=== PATIENT | male | born 1980 | race Caucasian/White ===

== ENCOUNTER 2019-09-05 18:02 | Inpatient (IN) | payer MEDICARE, MEDICAID, SELFPAY ==
--- NOTE | ~2019-09-05 | CT_ITS ---
EXAMINATION: CT abdomen pelvis w con DATE: 09/05/2019 19:19 INDICATION: Elevated blood sugar, nausea and vomiting. TECHNIQUE: Computed tomography (CT) of the abdomen and pelvis was performed with 100 mL Omnipaque-350 intravenous contrast. Automated exposure control and iterative reconstruction technique were employe d. The dose-length product was 1737.16 mGy-cm. COMPARISON: 02/26/2017 FINDINGS: Lung bases are clear. Heart size is normal. No pericardial or pleural effusion. Diffuse hepatic steat osis with focal sparing along the gallbladder fossa. Gallbladder, pancreas and bilateral kidneys are normal. Splenomegaly measuring 18.3 cm in craniocaudal length. 1.4 cm macroscopic fat attenuation rig ht adrenal myelolipoma. 10 mm low-attenuation left adrenal adenoma. There are few scattered colonic d iverticula without adjacent inflammatory change to suggest diverticulitis. Small bowel and appendix a re normal. Moderate-sized fat-containing umbilical hernia measuring 8.2 x 8.3 x 6.1 cm extending to a n orifice measuring 3.6 x 3.5 cm. Bladder is normal. No free intraperitoneal gas or fluid. No patholo gically enlarged abdominal or pelvic lymphadenopathy. Minimal scattered degenerative skeletal changes . IMPRESSION: 1. No acute intra-abdominal/pelvic process. 2. Diffuse hepatic steatosis. 3. Moderate-sized fat-containing umbilical hernia. Reviewed, dictated and finalized at location A. GAGE PROFESSIONAL
--- NOTE | ~2019-09-05 | XR_ITS ---
EXAMINATION: XR chest 1V portable DATE: 09/05/2019 19:20 INDICATION: Cough and chest pain. Elevated blood sugar. TECHNIQUE: frontal view of the chest was obtained. COMPARISON: Chest radiograph dated 02/21/2019 FINDINGS: The lungs are now clear with no focal airspace opacities, pulmonary edema, pleural effusion or pneumo thorax. The cardiomediastinal silhouette is normal. Visualized bones and soft tissues are unremarkabl e. IMPRESSION: 1. Normal chest radiograph. Reviewed, dictated and finalized at location A. IVES TECHNICIAN IMPRESSION: 1. Normal chest radiograph.
[2019-09-05 18:11] VITALS: BP 129/77; PULSE 88; RESP 16; TEMP 36.3; O2SAT 96
[2019-09-05 18:20] LABS: Glucose Point of Care 499 (65-105)
--- NOTE | 2019-09-05 18:21 | ED.GENADULT ---
HPI - General Adult General Chief complaint: Unspecified Stated complaint: ELEVATED BLOOD SUGAR Time Seen by Provider: 09/05/19 18:08 Source: patient and RN notes reviewed Mode of arrival: ambulatory Limitations: no limitations History of Present Illness HPI narrative: A 39 y/o male presents to the ED d/t elevated BS for the past month. He states that his BS has been running between 400-600 for the past month. He reports some associated N/V and SOB. He notes that he has been taking his medication as prescribe, but that since his BS has not been improving he decided to come to the ED today. He denies any CP, diarrhea, fevers, chills, or confusion. MD complaint: Elevated BS Onset (ago): month(s) (1) Relieving factors: none Associated symptoms: nausea/vomiting and shortness of breath Related Data Allergies Allergy/AdvReac Type Severity Reaction Status Date / Time No Known Allergies Allergy Unknown Verified 09/05/19 18:36 Review of Systems Review of Systems: All systems reviewed & are unremarkable except as noted in HPI and below Constitutional: Constitutional: Denies chills and Denies fever(s) Cardiovascular: Cardiovascular: Denies chest pain Respiratory: Respiratory: Reports dyspnea Gastrointestinal: Gastrointestinal: Denies diarrhea, Reports nausea and Reports vomiting Neurologic: Denies confusion [facility] Past Medical History Medical History (Updated 09/05/19 @ 20:32 by Florentin Silva DO) Anxiety Cellulitis Depression DMII (diabetes mellitus, type 2) Eczema Fatty liver GERD (gastroesophageal reflux disease) H/O: HTN (hypertension) History of angina History of kidney stones Hx of gallstones Hx of gout Hypercholesteremia Lymphedema Sleep apnea Umbilical hernia Surgical History Surgical History (Updated 09/05/19 @ 18:26 by Eren Kraft) Surgical history unknown Social History Social History (Updated 09/05/19 @ 18:26 by Eren Kraft) Smoking status: Former smoker Second hand tobacco smoke exposure: Yes Gender identity (if verbalized by the patient): Male Comments PCP: Dr. Montaño. Exam Narrative: Exam Narrative: APPEARANCE: No acute distress, nontoxic, resting in bed EYES: EOMI HEENT: Normocephalic, atraumatic, oral mucosa dry, no erythema or exudate posterior pharynx RESPIRATORY: No respiratory distress Clear to auscultation bilaterally with no rhonchi wheezing or rales. CARDIOVASCULAR: Regular rate and rhythm without murmurs rubs or gallops. ABDOMINAL: Soft, nondistended, diffusely tender to palpation, no rebound or guarding, umbilical hernia that is easily reducible MUSCULOSKELETAl: Moves all extremities. No clubbing, cyanosis or edema. NEURO: Awake and alert. Following commands, speech normal, no focal deficits SKIN:: Warm, dry. No rashes lesions or abrasions PSYCHIATRIC: Normal affect/mood, Course Course Emergency Course: Discussed with patient and family results of workup and diagnosis. Discussed need for admission. Patient and family understand and agree to current treatment plan Consultations Consultation #1: Discussed case with Dr. Farah (Hospitalist). Accepts the pt. Date: 09/05/19 Time: 19:54 Vital Signs Vital signs: Vital Signs Temperature 97.3 F L 09/05/19 18:11 Pulse Rate 88 09/05/19 18:11 Respiratory Rate 16 09/05/19 18:11 Blood Pressure 129/77 09/05/19 18:11 Pulse Oximetry 96 09/05/19 18:11 Temperature 97.3 F L 09/05/19 18:11 Pulse Rate 88 09/05/19 19:00 Respiratory Rate 16 09/05/19 18:23 Blood Pressure 129/77 09/05/19 18:11 Pulse Oximetry 96 09/05/19 18:11 Medical Decision Making Vital Signs Vital Signs: Vital Signs Temperature 97.3 F L 09/05/19 18:11 Pulse Rate 88 09/05/19 18:11 Respiratory Rate 16 09/05/19 18:11 Blood Pressure 129/77 09/05/19 18:11 Pulse Oximetry 96 09/05/19 18:11 Temperature 97.3 F L 09/05/19 18:11 Pulse Rate 88 09/05/19 19:00 Respiratory Rate 16 09/05/19 18:23 Blood Pressure
[2019-09-05 18:23] VITALS: RESP 16
--- NOTE | 2019-09-05 18:23 | ECG_ITS ---
Measurements Intervals [place] Rate: 85 P: 49 MI: 183 QRS: 49 QRSD: 115 T: 5 QT: 393 QTc: 469 Interpretive Statements SINUS RHYTHM INTRAVENTRICULAR CONDUCTION DELAY CANNOT RULE OUT SEPTAL INFARCT, AGE INDETERMINATE BORDERLINE ST-T WAVE ABNORMALITY- INF/LAT LEADS BASELINE ARTIFACT- V1, V3-V6 ABNORMAL ECG Electronically Signed On 09-05-2019 18:55:38 [employer] by Javier Jiménez D.O.
[2019-09-05 18:42] LABS: Glucose Point of Care > 500 (65-105)
[2019-09-05 18:51] LABS: Basophils Absolute Auto 0.1 K/mm3 (0.0-0.1); Eosinophils Absolute Auto 0.3 K/mm3 (0-0.3); Eosinophils Percent Auto 2.3 % (0-4.4); Hematocrit 48.7 % (42.0-52.0); Hemoglobin 17.6 g/dL (14.0-18.0); Immature Granulocyte Absolute 0.09 K/mm3 (0.00-0.031); Immature Granulocyte Percent A 0.8 % (0-0.5); Lymphocytes Absolute Auto 2.56 K/mm3 (0.9-3.2); Lymphocytes Percent Auto 22.7 % (18.3-44.2); Mean Corpuscular HGB Conc 36.1 g/dl (32-36); Mean Corpuscular Hemoglobin 30.1 pg (26-34); Mean Corpuscular Volume 83.4 fl (80-100); Mean Platelet Volume 10.5 fl (7.4-10.4); Monocytes Percent Auto 9.2 % (2.6-8.5); Neutrophils Absolute Auto 7.2 K/mm3 (1.3-6.7); Platelet Count Result 243 k/mm3 (150-375); Red Blood Count 5.84 M/mm3 (4.6-6.20); Red Cell Distribution Width 12.3 % (11.5-14.5); White Blood Count 11.3 K/mm3 (4.5-10.0)
[2019-09-05] MEDS: SODIUM CHLORIDE 0.9% IV 1,000 ML 999 ML IV CONT ×2 (18:52→20:02)
[2019-09-05 18:54] LABS: Alveolar/Arterial O2 Gradient 43.1 mmHg; Base Excess ABG 6.3 mEq/l (+/-2.0); Fractional Inspired Oxygen 21 %; HCO3 ABG 30.8 mEq/l (22.0-26.0); Oxygen Content ABG 21.2 %vol (16.0-22.0); Oxygen Saturation ABG 90.2 % (95.0-100.0); Oxyhemoglobin 85.4 % THb (90.0-100.0); PCO2 ABG 43.3 mmHg (35.0-45.0); PO2 ABG 54.8 mmHg (80.0-100.0); PO2 FiO2 Ratio Arterial Blood 2.61 %; Total Hemoglobin 17.7 g/dL (12.0-18.0)
[2019-09-05 18:56] LABS: Device ROOM AIR; Modified Allen's Test Pass; Site Drawn LEFT RADIAL
[2019-09-05 19:00] VITALS: PULSE 88
[2019-09-05 19:06] LABS: Lactic Acid Reflex 1.7 mmol/L (0.7-2.1)
[2019-09-05 19:07] LABS: Partial Thromboplastin Time 24.6 SECONDS (22.3-36.8); Prothrombin Time 13.3 Seconds (11.1-14.7)
[2019-09-05 19:11] LABS: Add Urine Microscopic? YES; Appearance Urine Clear (Clear); Bilirubin Urine Negative (Negative); Blood Urine Negative (Negative); Color Urine Yellow (Yellow); Glucose Urine UA 3+ mg/dL (Negative); Ketones Urine Negative (Negative); Leukocyte Esterase Ur Negative LEU/UL (Negative); Nitrate Urine Negative (Negative); Protein Urine Negative (Negative); RBC Urine 0-2 /hpf (0-2); Specific Grav Ur 1.013 (1.001-1.035); Squamous Epithelial Cell Urine Rare /hpf (Few); Urobilinogen Urine Negative mg/dL (<2.0); WBC Urine 0-3 /hpf
[2019-09-05 19:11] LABS: Alanine Aminotransferase 71 U/L (4-50); Albumin Level 4.7 g/dL (3.5-5.1); Alkaline Phosphatase 78 U/L (38-126); Aspartate Amino Transferase 51 U/L (17-59); Bilirubin,Total 1.4 mg/dL (0.2-1.3); Blood Urea Nitrogen 27 mg/dL (9-20); Carbon Dioxide 36 mmol/L (22-30); Chloride 76 mmol/L (98-107); Estimated CRCL calculation 155 ml/min; Estimated Glomerular Filt Rate > 60; Glucose 452 mg/dL (75-110); Lipase 111 U/L (23-300); Potassium 2.5 mmol/L (3.4-5.0); Sodium 127 mmol/L (137-145)
[2019-09-05 19:15] LABS: Beta-Hydroxybutyrate/Acetoacetate 0.89 mmol/L (0.02-0.27)
[2019-09-05] MEDS: ONDANSETRON INJ 4 MG/2 ML VIAL IV PUSH (19:29)
[2019-09-05 20:16] LABS: Glucose Point of Care > 500 (65-105)
[2019-09-05] MEDS: INSULIN HUMAN REGULAR (*BKC) 100 UNITS/ML 8 UNITS IV PUSH (20:19)
[2019-09-05 20:31] VITALS: BP 121/70; PULSE 79; RESP 16; O2SAT 95
[2019-09-05] MEDS: POTASSIUM CHLORIDE 20 MEQ TABLET 40 MEQ PO (20:33)
[2019-09-05 21:19] VITALS: BP 119/66; PULSE 95; RESP 16; O2SAT 95
--- NOTE | 2019-09-05 21:25 | PM.IMHP ---
H&P: HPI History of Present Illness Chief complaint: hyperglycemia,hypokalemia,hyponatremia Narrative: This is a pleasant morbidly obese diabetic 39-year-old male who presented to the hospital [facility] with a complaint of ongoing nausea and vomiting which she has had for the past month as well as hyperglycemia. The patient mentions he has had elevated blood sugars of 400 - 600 mg/dl for the past month and has felt terrible. He does complain of upper respiratory symptoms over the past few weeks including cough, congestion, runny nose, sore throat. He denies any chest pain, fevers, chills, diarrhea the, rectal bleeding, dysuria, hematuria, or other symptoms. The patient has been taking his insulin as prescribed by his primary care doctor. Tonight in the emergency room the patient was evaluated and found to be dehydrated, hyperglycemic with a blood glucose of 500 mg/dL, and have a low potassium of 2.5. He does mention that he recently just started a new diuretic. He did complain of mild diffuse abd pain [facility] The patient has been given a bolus of IV insulin and we been asked to admit the patient to the hospital for his hypokalemia, dehydration, and hyperglycemia. He has no other specific complaints at this time. Review of Systems Review of Systems: All systems reviewed & are unremarkable except as noted in HPI and below PMFSH Past Medical History Medical History Anxiety Cellulitis Depression DMII (diabetes mellitus, type 2) Eczema Fatty liver GERD (gastroesophageal reflux disease) H/O: HTN (hypertension) History of angina History of kidney stones Hx of gallstones Hx of gout Hypercholesteremia Lymphedema Sleep apnea Umbilical hernia Surgical History Surgical History Surgical history unknown Family History Family History Father Acute myocardial infarction Social History Social History Smoking status: Former smoker Second hand tobacco smoke exposure: Yes Alcohol intake: never Substance use: never Gender identity (if verbalized by the patient): Male Spiritual care concerns: No Agree to blood products: Yes Meds Home Medications and Allergies Home Medications Medication Instructions Recorded Confirmed Type allopurinol [Zyloprim] 100 mg PO DAILY 09/05/19 09/05/19 History aspirin [Adult Low Dose Aspirin] 81 mg PO DAILY 09/05/19 09/05/19 History carvedilol [Coreg] 25 mg PO BID 09/05/19 09/05/19 History fenofibrate 160 mg PO DAILY 09/05/19 09/05/19 History ferrous sulfate 325 mg PO DAILY 09/05/19 09/05/19 History furosemide [Lasix] 40 mg PO TID 09/05/19 09/05/19 History icosapent ethyl [Vascepa] 1 g PO BID 09/05/19 09/05/19 History insulin glargine [Basaglar KwikPen 40 unit SUBCUT HS 09/05/19 09/05/19 History U-100 Insulin] metformin [Glucophage] 500 mg PO TID 09/05/19 09/05/19 History metolazone 2.5 mg PO DAILY 09/05/19 09/05/19 History omeprazole 20 mg PO DAILY 09/05/19 09/05/19 History potassium chloride [Klor-Con M20] 20 meq PO BID 09/05/19 09/05/19 History spironolactone 25 mg PO DAILY 09/05/19 09/05/19 History Allergies Allergy/AdvReac Type Severity Reaction Status Date / Time No Known Allergies Allergy Unknown Verified 09/05/19 18:36 Vital Signs Vital Signs - 24 hr 09/05/19 18:11 09/05/19 18:23 09/05/19 19:00 Temperature 36.3 C L Pulse Rate 88 88 Respiratory Rate 16 16 Blood Pressure 129/77 Pulse Oximetry 96 09/05/19 20:31 09/05/19 21:19 Temperature Pulse Rate 79 95 Respiratory Rate 16 16 Blood Pressure 121/70 119/66 Pulse Oximetry 95 95 Exam Const: General: cooperative, no acute distress, alert, awake and other (dehydrated++ ) Nutritional Appearance: obese morbidly obese Orientation/consciousness: pat
[2019-09-05 21:34] VITALS: BP 137/76; PULSE 91; RESP 16; TEMP 36.3; O2SAT 94; BMI 46.1
--- NOTE | 2019-09-05 22:23 | ADMGEN ---
This patient, Tr Fields, was admitted to [facility] Surg Room 329-01. Patient/family oriented to hospital policies and general routines including ID bracelet, bed and alarms, visiting hours, pain management, procedures, bathroom and other care routines, personal items, smoking policy, room service/diet, and visiting hours. Valuables list has been completed. Information on how to activate the Rapid Response Team has been discussed. Patient/Family are encouraged to report perceived risks to care and to ask questions if they do not understand what they are told or what they should do.
[2019-09-05 22:59] LABS: Glucose Point of Care 397 (65-105)
[2019-09-05 23:59] LABS: Blood Urea Nitrogen 29 mg/dL (9-20); Calcium 9.4 mg/dL (8.4-10.2); Carbon Dioxide 33 mmol/L (22-30); Chloride 77 mmol/L (98-107); Estimated CRCL calculation 151 ml/min; Estimated Glomerular Filt Rate > 60; Glucose 459 mg/dL (75-110); Potassium 2.8 mmol/L (3.4-5.0); Sodium 125 mmol/L (137-145)
[2019-09-06] VITALS (10 sets, daily range): BP systolic 117–149; BP diastolic 53–81; PULSE 76–97; RESP 18–20; TEMP 36.7–36.8; O2SAT 94–100
[2019-09-06] MEDS: SODIUM CHLORIDE 0.9% IV 1,000 ML 125 ML IV CONT ×2 (04:35→14:15)
[2019-09-06 06:14] LABS: Basophils Absolute Auto 0.1 K/mm3 (0.0-0.1); Basophils Percent Auto 0.7 % (0.2-1.2); Eosinophils Absolute Auto 0.2 K/mm3 (0-0.3); Eosinophils Percent Auto 2.4 % (0-4.4); Hematocrit 46.3 % (42.0-52.0); Hemoglobin 16.5 g/dL (14.0-18.0); Immature Granulocyte Absolute 0.05 K/mm3 (0.00-0.031); Immature Granulocyte Percent A 0.5 % (0-0.5); Lymphocytes Absolute Auto 2.92 K/mm3 (0.9-3.2); Lymphocytes Percent Auto 29.8 % (18.3-44.2); Mean Corpuscular HGB Conc 35.6 g/dl (32-36); Mean Corpuscular Hemoglobin 29.9 pg (26-34); Mean Platelet Volume 9.8 fl (7.4-10.4); Monocytes Percent Auto 9.9 % (2.6-8.5); Neutrophils Absolute Auto 5.6 K/mm3 (1.3-6.7); Neutrophils Percent Auto 56.7 % (45.5-73.1); Platelet Count Result 220 k/mm3 (150-375); Red Blood Count 5.51 M/mm3 (4.6-6.20); Red Cell Distribution Width 12.4 % (11.5-14.5); White Blood Count 9.8 K/mm3 (4.5-10.0)
[2019-09-06 06:47] LABS: Alanine Aminotransferase 63 U/L (4-50); Albumin Level 4.3 g/dL (3.5-5.1); Alkaline Phosphatase 75 U/L (38-126); Aspartate Amino Transferase 44 U/L (17-59); Bilirubin,Total 0.9 mg/dL (0.2-1.3); Blood Urea Nitrogen 26 mg/dL (9-20); Calcium 9.3 mg/dL (8.4-10.2); Carbon Dioxide 35 mmol/L (22-30); Chloride 80 mmol/L (98-107); Estimated CRCL calculation 167 ml/min; Estimated Glomerular Filt Rate > 60; Glucose 391 mg/dL (75-110); Potassium 2.4 mmol/L (3.4-5.0); Sodium 127 mmol/L (137-145)
[2019-09-06 06:59] LABS: Glucose Point of Care 407 (65-105)
[2019-09-06] MEDS: INSULIN ASPART (*BKC) 100 UNITS/ML SUB-Q ×4 (07:31→17:57)
[2019-09-06] MEDS: FERROUS SULFATE 324 MG TABLET PO (08:28)
[2019-09-06] MEDS: allopurinoL 100 MG TABLET PO (08:28)
[2019-09-06] MEDS: metFORMIN HCL 500 MG TABLET PO ×3 (08:29→17:56)
[2019-09-06] MEDS: POTASSIUM CHLORIDE 20 MEQ TABLET.ER PO ×2 (08:29→18:00)
[2019-09-06] MEDS: PANTOPRAZOLE SOD SESQUIHYDRATE 20 MG TAB PO (08:29)
[2019-09-06] MEDS: carvediloL 25 MG TABLET PO ×2 (08:31→20:48)
[2019-09-06] MEDS: ASPIRIN 81 MG ENTERIC TABLET PO (08:31)
[2019-09-06] MEDS: OMEGA 3 POLYUNSAT FATTY ACIDS 1 GM CAP PO ×2 (08:32→17:59)
[2019-09-06] MEDS: FENOFIBRATE 160 MG TABLET PO (08:33)
[2019-09-06 15:04] LABS: Blood Urea Nitrogen 24 mg/dL (9-20); Calcium 8.9 mg/dL (8.4-10.2); Carbon Dioxide 30 mmol/L (22-30); Chloride 84 mmol/L (98-107); Estimated CRCL calculation 167 ml/min; Estimated Glomerular Filt Rate > 60; Glucose 488 mg/dL (75-110); Potassium 2.9 mmol/L (3.4-5.0); Sodium 128 mmol/L (137-145)
--- NOTE | 2019-09-06 16:00 | PM.IMPN ---
Progress Note: A&P Assessment and Plan (1) Acute hyperglycemia: Code(s): R73.9 - Hyperglycemia, unspecified Status: Acute Assessment and Plan: The patient came in with glucose is 600 at home and reports being compliant with his long-acting insulin at night and metformin. He is unsure of his last hemoglobin A1c. He states he was sick August 02, 2019 and glucose has been elevated. Patient has not seen his primary care provider since then. Serum glucose this morning was 407. He was given 12 units of NovoLog at this time. We will continue with his long-acting insulin at 40 units at night and I have started short-acting insulin 8 units t.i.d. along with sliding scale insulin. Continue monitoring glucose ACHS. Continue SSI coverage, Continue long acting insulin. Hypoglycemia protocol. (2) Acute hypokalemia: Code(s): E87.6 - Hypokalemia Status: Acute Assessment and Plan: May be secondary to nausea, vomiting and diuretics. Serum potassium 2.4 this morning and he was given IV potassium 40 mEq. Repeat potassium this afternoon was 2.9. His give another 40 units p.o. of potassium. He denies any more cramping to his extremities. Will recheck his potassium in the morning. Continue potassium replacement. Monitor serum potassium. telemetry. (3) Acute hyponatremia: Code(s): E87.1 - Hypo-osmolality and hyponatremia Status: Acute Assessment and Plan: Appears to be pseudohyponatremia. Corrected sodium for hyperglyecmia is 134 mEq/L. Continue with IV fluid hydration and monitoring of sodium levels. (4) Dehydration: Code(s): E86.0 - Dehydration Status: Acute Assessment and Plan: Secondary to nausea and vomiting verses hyperglycemia. He is feeling slightly better today with IV fluids he has been given. Continue IV hydration. Monitor urine output. (5) Nausea & vomiting: Qualifiers: Vomiting Intractability: non-intractable Vomiting type: unspecified Qualified Code(s): R11.2 - Nausea with vomiting, unspecified Code(s): R11.2 - Nausea with vomiting, unspecified Status: Acute Assessment and Plan: Likely secondary to ongoing URI symptoms. Denies any more nausea or vomiting since arrival. Continue IV hydration. Hold diuretics. Antiemetics as needed. (6) URI (upper respiratory infection): Qualifiers: URI type: unspecified URI Qualified Code(s): J06.9 - Acute upper respiratory infection, unspecified Code(s): J06.9 - Acute upper respiratory infection, unspecified Status: Acute Assessment and Plan: Continue supportive care. Antitussives and antipyretics as needed. IV fluids. Time Spent With Patient Time with patient: 25 - 35 minutes Subjective Date/time seen: 09/06/19 16:00 Interval history: * Review of Systems Review of Systems: All systems reviewed & are unremarkable except as noted in HPI and below Exam Narrative: Exam Narrative: General: 39-year-old man laying flat in bed. Appears comfortable. In no acute distress. Skin: No jaundice or cyanosis. Good skin turgor. Neck: Full range of motion. Supple. Nontender. Respiratory: Lungs are clear to auscultation bilaterally. No bony chest wall tenderness. Cardiovascular: The heart has a regular rate and rhythm without murmur. No carotid bruits. Lower extremities: No lower extremity edema. Distal pulses are easily palpated. No calf tenderness to palpation. Gastrointestinal: The abdomen is soft, nontender and nondistended with active bowel sounds. Psychiatric: Lucid and oriented. Memory intact. Neurologic: No focal deficits. Speech is clear. No facial d
[2019-09-06 16:36] LABS: Glucose Point of Care 433 (65-105)
[2019-09-06 16:58] LABS: Glucose Point of Care 447 (65-105)
[2019-09-06] MEDS: INSULIN ASPART (*BKC) 100 UNITS/ML 8 UNITS SUB-Q (17:56)
[2019-09-06] MEDS: POTASSIUM CHLORIDE 20 MEQ TABLET 40 MEQ PO (17:59)
[2019-09-06] MEDS: INSULIN GLARGINE (*BKC) 100 UNITS/ML 40 UNITS SUB-Q (20:54)
[2019-09-06 21:33] LABS: Glucose Point of Care 310 (65-105)
[2019-09-07] VITALS (11 sets, daily range): BP systolic 110–135; BP diastolic 56–62; PULSE 75–92; RESP 16–20; TEMP 36.7–37.7; O2SAT 93–97; BMI 46.1
[2019-09-07] MEDS: SODIUM CHLORIDE 0.9% IV 1,000 ML 125 ML IV CONT ×2 (01:00→10:06)
[2019-09-07] MEDS: INSULIN ASPART (*BKC) 100 UNITS/ML SUB-Q ×3 (07:31→17:58)
[2019-09-07] MEDS: INSULIN ASPART (*BKC) 100 UNITS/ML 8 UNITS SUB-Q ×2 (07:31→12:36)
[2019-09-07 07:42] LABS: Glucose Point of Care 264 (65-105)
[2019-09-07] MEDS: POTASSIUM CHLORIDE 20 MEQ TABLET.ER PO (08:09)
[2019-09-07] MEDS: FENOFIBRATE 160 MG TABLET PO (08:09)
[2019-09-07] MEDS: carvediloL 25 MG TABLET PO ×2 (08:09→20:44)
[2019-09-07] MEDS: OMEGA 3 POLYUNSAT FATTY ACIDS 1 GM CAP PO ×2 (08:09→17:55)
[2019-09-07] MEDS: FERROUS SULFATE 324 MG TABLET PO (08:09)
[2019-09-07] MEDS: allopurinoL 100 MG TABLET PO (08:09)
[2019-09-07] MEDS: ASPIRIN 81 MG ENTERIC TABLET PO (08:09)
[2019-09-07] MEDS: PANTOPRAZOLE SOD SESQUIHYDRATE 20 MG TAB PO (08:09)
[2019-09-07] MEDS: metFORMIN HCL 500 MG TABLET PO ×3 (08:09→17:55)
[2019-09-07] MEDS: ACETAMINOPHEN 500 MG TABLET 1000 MG PO (08:09)
[2019-09-07 08:54] LABS: Hematocrit 44.6 % (42.0-52.0); Hemoglobin 15.6 g/dL (14.0-18.0); Mean Corpuscular Hemoglobin 30.1 pg (26-34); Mean Corpuscular Volume 86.1 fl (80-100); Mean Platelet Volume 10.3 fl (7.4-10.4); Platelet Count Result 204 k/mm3 (150-375); Red Blood Count 5.18 M/mm3 (4.6-6.20); Red Cell Distribution Width 12.6 % (11.5-14.5); White Blood Count 8.6 K/mm3 (4.5-10.0)
[2019-09-07 09:07] LABS: Hemoglobin A1C 10.1 % (<5.7)
[2019-09-07 09:08] LABS: Blood Urea Nitrogen 16 mg/dL (9-20); Calcium 8.8 mg/dL (8.4-10.2); Carbon Dioxide 34 mmol/L (22-30); Chloride 87 mmol/L (98-107); Estimated CRCL calculation 211 ml/min; Estimated Glomerular Filt Rate > 60; Glucose 280 mg/dL (75-110); Potassium 2.8 mmol/L (3.4-5.0); Sodium 134 mmol/L (137-145)
[2019-09-07] MEDS: POTASSIUM CHLORIDE 20 MEQ TABLET 60 MEQ PO ×2 (10:08→17:53)
[2019-09-07 12:56] LABS: Glucose Point of Care 227 (65-105)
--- NOTE | 2019-09-07 17:08 | PM.IMPN ---
Progress Note: A&P Assessment and Plan (1) Acute hyperglycemia: Code(s): R73.9 - Hyperglycemia, unspecified Status: Acute Assessment and Plan: The patient came in with glucose is 600 at home and reports being compliant with his long-acting insulin at night and metformin. He states he was sick August 02, 2019 and glucose has been elevated. Hemoglobin A1c was 10.1 today. Serum glucose this morning was 280. We will continue with his long-acting insulin at 40 units at night and I have started short-acting insulin 8 units t.i.d. along with sliding scale insulin. Continue monitoring glucose ACHS. Continue SSI coverage, Continue long acting insulin. Hypoglycemia protocol. (2) Acute hypokalemia: Code(s): E87.6 - Hypokalemia Status: Acute Assessment and Plan: May be secondary to nausea, vomiting and diuretics. Serum potassium 2.8 this morning and he was given PO potassium 60mEq. Repeat potassium this afternoon was 3.0. His give another 60 mEq PO of potassium. He denies any more cramping to his extremities. Will recheck his potassium in the morning. Continue potassium replacement. Monitor serum potassium. telemetry. (3) Acute hyponatremia: Code(s): E87.1 - Hypo-osmolality and hyponatremia Status: Acute Assessment and Plan: Appears to be pseudohyponatremia. Corrected sodium for hyperglyecmia is 137 mEq/L. Continue monitoring of sodium levels. (4) Dehydration: Code(s): E86.0 - Dehydration Status: Acute Assessment and Plan: Secondary to nausea and vomiting verses hyperglycemia. He is feeling slightly better today Will discontinue IV fluids. Continue IV hydration. Monitor urine output. (5) URI (upper respiratory infection): Qualifiers: URI type: unspecified URI Qualified Code(s): J06.9 - Acute upper respiratory infection, unspecified Code(s): J06.9 - Acute upper respiratory infection, unspecified Status: Acute Assessment and Plan: Continue supportive care. Antitussives and antipyretics as needed. IV fluids. (6) Nausea & vomiting: Qualifiers: Vomiting Intractability: non-intractable Vomiting type: unspecified Qualified Code(s): R11.2 - Nausea with vomiting, unspecified Code(s): R11.2 - Nausea with vomiting, unspecified Status: Acute Assessment and Plan: Likely secondary to ongoing URI symptoms. Denies any more nausea or vomiting since arrival. Continue IV hydration. Hold diuretics. Antiemetics as needed. Time Spent With Patient Time with patient: 25 - 35 minutes Subjective Date/time seen: 09/07/19 17:08 Interval history: Date of service 09/07/2019: The patient reports feeling improved today. He did have a normal bowel movement today. He denies any chest pain, shortness of breath, cough, fever, chills, abdominal pain, diarrhea, leg swelling, calf pain, headache, lightheadedness, dizziness or any other symptoms at this time. Review of Systems Review of Systems: All systems reviewed & are unremarkable except as noted in HPI and below Exam Narrative: Exam Narrative: Exam Narrative: General: 39-year-old man laying on his right side, flat in bed, wearing his CPAP machine in taking a nap. He is easily arousable. Appears comfortable. In no acute distress. Skin: No jaundice or cyanosis. Good skin turgor. Neck: Full range of motion. Supple. Respiratory: Lungs are clear to auscultation bilaterally. No wheezing rales or rhonchi. No bony chest wall tenderness. Cardiovascular: The heart has a regular rate and rhythm without murmur. Lower extremities: No lower extremity edema. Distal pulses are easily p
[2019-09-07] MEDS: INSULIN ASPART (*BKC) 100 UNITS/ML 12 UNITS SUB-Q (17:58)
[2019-09-07 18:07] LABS: Glucose Point of Care 256 (65-105)
[2019-09-07 19:44] LABS: Glucose Point of Care 272 (65-105)
--- NOTE | 2019-09-07 20:20 | PC.NURSE ---
Patient is rfusing telementry at this time abilio tollivern is hurts
[2019-09-07] MEDS: INSULIN GLARGINE (*BKC) 100 UNITS/ML 40 UNITS SUB-Q (20:46)
[2019-09-08 05:58] VITALS: BP 118/60; PULSE 72; RESP 16; TEMP 36.4; O2SAT 97
[2019-09-08 06:58] LABS: Glucose Point of Care 302 (65-105)
[2019-09-08] MEDS: INSULIN ASPART (*BKC) 100 UNITS/ML 12 UNITS SUB-Q ×2 (07:51→12:57)
[2019-09-08] MEDS: INSULIN ASPART (*BKC) 100 UNITS/ML SUB-Q ×2 (07:51→12:57)
[2019-09-08] MEDS: metFORMIN HCL 500 MG TABLET PO (07:52)
[2019-09-08] MEDS: allopurinoL 100 MG TABLET PO (07:53)
[2019-09-08] MEDS: FERROUS SULFATE 324 MG TABLET PO (07:53)
[2019-09-08 08:22] LABS: Blood Urea Nitrogen 11 mg/dL (9-20); Calcium 9.3 mg/dL (8.4-10.2); Carbon Dioxide 31 mmol/L (22-30); Chloride 96 mmol/L (98-107); Estimated CRCL calculation 211 ml/min; Estimated Glomerular Filt Rate > 60; Glucose 276 mg/dL (75-110); Potassium 3.5 mmol/L (3.4-5.0); Sodium 136 mmol/L (137-145)
[2019-09-08] MEDS: OMEGA 3 POLYUNSAT FATTY ACIDS 1 GM CAP PO (08:33)
[2019-09-08] MEDS: POTASSIUM CHLORIDE 20 MEQ TABLET.ER PO (08:33)
[2019-09-08] MEDS: carvediloL 25 MG TABLET PO (08:33)
[2019-09-08] MEDS: PANTOPRAZOLE SOD SESQUIHYDRATE 20 MG TAB PO (08:33)
[2019-09-08] MEDS: FENOFIBRATE 160 MG TABLET PO (08:33)
[2019-09-08] MEDS: ASPIRIN 81 MG ENTERIC TABLET PO (08:33)
--- NOTE | 2019-09-08 11:44 | PM.DS ---
DS: Diagnosis Admitting Diagnosis Admitting Diagnosis: Type 2 diabetes mellitus with hyperglycemia Discharge Diagnosis (1) Acute hyperglycemia: Code(s): R73.9 - Hyperglycemia, unspecified Status: Acute Assessment and Plan: The patient came in with glucose is 600 at home and reports being compliant with his long-acting insulin at night and metformin. He states he was sick August 02, 2019 and glucose has been elevated. Hemoglobin A1c was 10.1. Serum glucose this morning was 276. We will continue with his long-acting insulin at 40 units at night and continue short-acting insulin 12 units t.i.d. Glucose is much better controlled today and patient is feeling much better. hospital educator will see the patient prior to discharge He will be discharged home once he gets his diabetes counseling. (2) Acute hypokalemia: Code(s): E87.6 - Hypokalemia Status: Acute Assessment and Plan: May be secondary to nausea, vomiting and diuretics. Serum potassium 3.5 this morning. He denies any more cramping to his extremities. He reports starting metolazone daily in August and wonders if this could be what caused worsening hypokalemia. I will adjust his diuretic medications and recheck a BMP in 1 week and him follow with his PCP. (3) Acute hyponatremia: Code(s): E87.1 - Hypo-osmolality and hyponatremia Status: Acute Assessment and Plan: Appears to be pseudohyponatremia. Sodium this morning was 136. Almost within normal limits. Check BMP in 1 week. (4) Dehydration: Code(s): E86.0 - Dehydration Status: Acute Assessment and Plan: Secondary to nausea and vomiting verses hyperglycemia. He is feeling better today and ready to be discharged home. (5) URI (upper respiratory infection): Qualifiers: URI type: unspecified URI Qualified Code(s): J06.9 - Acute upper respiratory infection, unspecified Code(s): J06.9 - Acute upper respiratory infection, unspecified Status: Acute Assessment and Plan: Continue supportive care. Antitussives and antipyretics as needed. (6) Nausea & vomiting: Qualifiers: Vomiting Intractability: non-intractable Vomiting type: unspecified Qualified Code(s): R11.2 - Nausea with vomiting, unspecified Code(s): R11.2 - Nausea with vomiting, unspecified Status: Acute Assessment and Plan: Likely secondary to ongoing URI symptoms. Denies any more nausea or vomiting since arrival. (7) Lymphedema: Code(s): I89.0 - Lymphedema, not elsewhere classified Status: Chronic Assessment and Plan: The patient has chronic lymphedema after an accident he sustained years ago. He uses lymphedema pumps at home and diuretics. He follows up with his primary care provider for this and he takes Lasix 40 mg t.i.d., spironolactone 25 mg daily, and he reports on August 02 he was started on metolazone. Since being admitted we have held all of his diuretics and he still feels like his lymphedema is well controlled at this time. I will continue him on Lasix 40 mg t.i.d. and spironolactone and recheck a BMP in 1 week and have him follow-up with his PCP. We will hold metolazone at this time and his primary care can restart this medication upon follow-up if needed and may need extra potassium daily to prevent hypokalemia again. DS: Summary Hospital Course Reason for hospitalization: The patient is a 39-year-old obese male with a history of diabetes, who presented to the emergency room with hyperglycemia for the last 1 month. He reported having upper respiratory symptoms the be
[2019-09-08 12:29] LABS: Glucose Point of Care 230 (65-105)
[2019-09-08 14:00] VITALS: BP 136/75; PULSE 81; RESP 16; TEMP 36.2; O2SAT 95
== END 2019-09-08 14:00 | disposition home or self-care (01) | DRG 638 ==
LOC: ANHED 19:46 → ANH3MEDSUR 20:18
PROVIDERS: Physician Assistant; Admitting Provider Family Medicine; Emergency Provider Emergency Medicine; Visit Provider Internal Medicine
DX: E11.65 Type 2 diabetes mellitus with hyperglycemia (principal); E87.1 Hypo-osmolality and hyponatremia; Z68.42 Body mass index [BMI] 45.0-49.9, adult; E87.6 Hypokalemia; E86.0 Dehydration; L30.9 Dermatitis, unspecified; K76.0 Fatty (change of) liver, not elsewhere classified; F41.9 Anxiety disorder, unspecified; E66.01 Morbid (severe) obesity due to excess calories; E11.9 Type 2 diabetes mellitus without complications; Z87.442 Personal history of urinary calculi; G47.30 Sleep apnea, unspecified; R11.2 Nausea with vomiting, unspecified; J06.9 Acute upper respiratory infection, unspecified; I89.0 Lymphedema, not elsewhere classified
CPT/HCPCS: 36415; 36600; 71045; 74177; 80048; 80053; 81001; 82010; 82805; 82948; 83036; 83605; 83690; 83735; 84132; 85025; 85027; 85610; 85730; 87804; 93005; 96361; 96365; 96366; 96367; 96375; 99291; A9270; G0378; J0131; J1815; J2405; J3480; J7030; Q9967

== ENCOUNTER 2020-08-25 13:15 | Emergency (ER) | payer MEDICARE, SELFPAY ==
[2020-08-25 13:20] VITALS: BP 186/83; PULSE 105; RESP 23; TEMP 36.6; O2SAT 96
--- NOTE | 2020-08-25 14:04 | ED.GENADULT ---
HPI - General Adult General Chief complaint: Extremity Injury, Lower Stated complaint: cellulitis - bilat legs Time Seen by Provider: 08/25/20 13:37 Source: patient Mode of arrival: ambulatory Limitations: clinical condition History of Present Illness HPI narrative: Patient is 39 years old white male morbidly obese history of lymphedema referred to the emergency room from urgent care with a possible lower legs cellulitis. Patient reports burning sensation, slight erythematous changes of the lower legs bilaterally similar to his previous history of recurrent cellulitis. Patient is diabetic, with history of hypertension and hyperlipidemia and lymphedema. Patient report frequent venous Doppler to rule out deep vein thrombosis with negative results.. Patient denies any fever, chills, nausea, vomiting, chest pain, shortness of breath, back pain or abdominal pain. Patient reports taking clindamycin or doxycycline every time when he have cellulitis with good result. Related Data Home Medications Medication Instructions Recorded Confirmed Basaglar KwikPen U-100 Insulin 40 unit SUBCUT HS 09/05/19 09/05/19 Vascepa 1 g PO BID 09/05/19 09/05/19 allopurinol [Zyloprim] 100 mg PO DAILY 09/05/19 09/05/19 aspirin [Adult Low Dose Aspirin] 81 mg PO DAILY 09/05/19 09/05/19 carvedilol [Coreg] 25 mg PO BID 09/05/19 09/05/19 fenofibrate 160 mg PO DAILY 09/05/19 09/05/19 ferrous sulfate 325 mg PO DAILY 09/05/19 09/05/19 furosemide [Lasix] 40 mg PO TID 09/05/19 09/05/19 metformin [Glucophage] 500 mg PO TID 09/05/19 09/05/19 metolazone 2.5 mg PO DAILY 09/05/19 09/05/19 omeprazole 20 mg PO DAILY 09/05/19 09/05/19 spironolactone 25 mg PO DAILY 09/05/19 09/05/19 Allergies Allergy/AdvReac Type Severity Reaction Status Date / Time No Known Allergies Allergy Unknown Verified 08/25/20 13:27 Review of Systems Review of Systems: Narrative: CONSTITUTIONAL: Denies fever, chills, or sweats. EYES: Denies visual changes, redness, or discharge. ENT: Denies rhinorrhea, congestion, sore throat, or otalgia. CARDIOVASCULAR: Denies chest pain, palpitations, or edema. RESPIRATORY: Denies cough or dyspnea. GASTROINTESTINAL: Denies abdominal pain, nausea, vomiting, or diarrhea. GENITOURINARY: Denies dysuria or hematuria. SKIN: Denies rash or itching. MUSCULOSKELETAL: Denies back pain, joint pain, or myalgia. NEUROLOGIC: Denies headache, numbness, or weakness. PSYCHIATRIC: Denies anxiety or depression. [facility] Past Medical History Medical History Anxiety Cellulitis Depression DMII (diabetes mellitus, type 2) Eczema Fatty liver GERD (gastroesophageal reflux disease) H/O: HTN (hypertension) History of angina History of kidney stones Hx of gallstones Hx of gout Hypercholesteremia Lymphedema Sleep apnea Umbilical hernia Surgical History Surgical History Surgical history unknown Family History Family History Father Acute myocardial infarction Social History Social History Smoking status: Former smoker Second hand tobacco smoke exposure: Yes Alcohol intake: never Substance use: never Gender identity (if verbalized by the patient): Male Spiritual care concerns: No Agree to blood products: Yes Exam Narrative: Exam Narrative: General appearance: Well-developed, well-nourished Skin: Normal color, lower legs bilaterally showed slight diffuse erythematous changes around the ankle, diffuse tenderness with slight touch anteriorly or posteriorly, hardening of the calf muscles bilaterally, no discharge. Chest and respiratory: Airway patent, no respiratory distress, no accessory muscle use Heart: Regular rate/rhythm Abdomen: Soft, nontender, no organomegaly, quiet bowel sounds Vascular: Normal peripheral pulses, normal capillary refill. Musculoske
[2020-08-25 14:17] LABS: Basophils Absolute Auto 0.1 K/mm3 (0.0-0.1); Basophils Percent Auto 0.6 % (0.2-1.2); Eosinophils Absolute Auto 0.3 K/mm3 (0-0.3); Eosinophils Percent Auto 2.7 % (0-4.4); Hematocrit 39.5 % (42.0-52.0); Hemoglobin 13.8 g/dL (14.0-18.0); Immature Granulocyte Absolute 0.08 K/mm3 (0.00-0.031); Immature Granulocyte Percent A 0.7 % (0-0.5); Lymphocytes Absolute Auto 2.02 K/mm3 (0.9-3.2); Lymphocytes Percent Auto 17.3 % (18.3-44.2); Mean Corpuscular HGB Conc 34.9 g/dl (32-36); Mean Corpuscular Hemoglobin 30.6 pg (26-34); Mean Corpuscular Volume 87.6 fl (80-100); Mean Platelet Volume 9.8 fl (7.4-10.4); Monocytes Absolute Auto 1.1 K/mm3 (0.1-0.6); Neutrophils Absolute Auto 8.1 K/mm3 (1.3-6.7); Neutrophils Percent Auto 69.7 % (45.5-73.1); Platelet Count Result 207 k/mm3 (150-375); Red Blood Count 4.51 M/mm3 (4.6-6.20); White Blood Count 11.7 K/mm3 (4.5-10.0)
[2020-08-25 14:29] LABS: Anion Gap 12 mmol/L (8-16); Blood Urea Nitrogen 15 mg/dL (9-20); Calcium 9.3 mg/dL (8.4-10.2); Carbon Dioxide 31 mmol/L (22-30); Chloride 90 mmol/L (98-107); Estimated CRCL calculation 195 ml/min; Estimated Glomerular Filt Rate > 60; Glucose 331 mg/dL (75-110); Potassium 3.1 mmol/L (3.4-5.0); Sodium 133 mmol/L (137-145)
[2020-08-25 14:48] LABS: D Dimer 0.27 ug/mL (<0.48)
[2020-08-25] MEDS: ACETAMINOPHEN 325 MG TABLET 650 MG (15:14)
[2020-08-25] MEDS: POTASSIUM CHLORIDE 20 MEQ PACKET (FOR LIQUID) 40 MEQ PO (16:14)
[2020-08-25] MEDS: INSULIN HUMAN REGULAR (*BKC) 100 UNITS/ML 6 UNITS SUB-Q (16:15)
[2020-08-25 16:27] VITALS: BP 178/68; PULSE 92; RESP 20; O2SAT 99
== END 2020-08-25 16:28 | disposition home or self-care (01) ==
PROVIDERS: Emergency Provider Emergency Medicine
DX: I89.0 Lymphedema, not elsewhere classified (principal); L03.116 Cellulitis of left lower limb; L03.115 Cellulitis of right lower limb; E87.6 Hypokalemia; E66.01 Morbid (severe) obesity due to excess calories; Z68.43 Body mass index [BMI] 50.0-59.9, adult; Z79.82 Long term (current) use of aspirin; Z79.4 Long term (current) use of insulin; E11.9 Type 2 diabetes mellitus without complications; K21.9 Gastro-esophageal reflux disease without esophagitis; Z87.442 Personal history of urinary calculi; E78.00 Pure hypercholesterolemia, unspecified; G47.30 Sleep apnea, unspecified; Z87.891 Personal history of nicotine dependence
CPT/HCPCS: 36415; 80048; 85025; 85380; 96365; 96366; 99284; A9270; J1815; J3370

== ENCOUNTER 2021-07-08 17:19 | Emergency (ER) | payer OTHER, SELFPAY ==
--- NOTE | ~2021-07-08 | XR_ITS ---
EXAMINATION: XR chest 2V EXAM DATE: 07/08/2021 19:01 INDICATION: Lower extremity edema. Cellulitis. Shortness of breath. Hypertension. TECHNIQUE: Frontal and lateral projections of the chest obtained and reviewed. Comparison is made to prior examination from 09/05/2019. FINDINGS: The lungs are clear. There are no pleural effusions. The cardiomediastinal silhouette is within normal limits. There is no pneumothorax suspected. The bones and soft tissues are unremarkab le. IMPRESSION: No acute cardiopulmonary findings. Reviewed, dictated and finalized at location A. 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
[2021-07-08 17:31] VITALS: BP 162/80; PULSE 85; RESP 18; TEMP 36.4; O2SAT 98
--- NOTE | 2021-07-08 18:50 | ECG_ITS ---
Measurements Intervals [place] Rate: 83 P: 55 NH: 171 QRS: 43 QRSD: 102 T: 25 QT: 378 QTc: 445 Interpretive Statements SINUS RHYTHM BORDERLINE R WAVE PROGRESSION, ANTERIOR LEADS BASELINE ARTIFACT- I, II, AVR BORDERLINE ECG Electronically Signed On 07-08-2021 20:23:01 [employer] by Javier Jiménez D.O.
--- NOTE | 2021-07-08 19:05 | ED.LOWEXIN ---
HPI - Extremity Injury (Lower) General Chief Complaint: Extremity Injury, Lower Stated Complaint: poss. sepsis Time Seen by Provider: 07/08/21 18:50 Source: patient Mode of arrival: ambulatory Limitations: no limitations History of Present Illness HPI Narrative: This is a 40-year-old male that presents to the emergency department for lower extremity edema. Reports history of lymphedema. Reports redness to the bilateral lower extremities. He was recently treated for cellulitis with doxycycline. He finished this a week ago. He does not feel like it fully relieved his symptoms. Reports he has also been feeling short of breath. Denies fever, cough, or chest pain. Related Data Home Medications Medication Instructions Recorded Confirmed Basaglar KwikPen U-100 Insulin 40 unit SUBCUT HS 09/05/19 09/05/19 Vascepa 1 g PO BID 09/05/19 09/05/19 allopurinol [Zyloprim] 100 mg PO DAILY 09/05/19 09/05/19 aspirin [Adult Low Dose Aspirin] 81 mg PO DAILY 09/05/19 09/05/19 carvedilol [Coreg] 25 mg PO BID 09/05/19 09/05/19 fenofibrate 160 mg PO DAILY 09/05/19 09/05/19 ferrous sulfate 325 mg PO DAILY 09/05/19 09/05/19 furosemide [Lasix] 40 mg PO TID 09/05/19 09/05/19 metformin [Glucophage] 500 mg PO TID 09/05/19 09/05/19 metolazone 2.5 mg PO DAILY 09/05/19 09/05/19 omeprazole 20 mg PO DAILY 09/05/19 09/05/19 spironolactone 25 mg PO DAILY 09/05/19 09/05/19 Allergies Allergy/AdvReac Type Severity Reaction Status Date / Time No Known Allergies Allergy Unknown Verified 07/08/21 19:17 Review of Systems Review of Systems: CONSTITUTIONAL: Denies fever CARDIOVASCULAR: Reports edema. Denies chest pain RESPIRATORY: Denies cough or dyspnea. SKIN: Denies rash All systems reviewed & are unremarkable except as noted in HPI and below PMFSH Past Medical History Medical History Anxiety Cellulitis Depression DMII (diabetes mellitus, type 2) Eczema Fatty liver GERD (gastroesophageal reflux disease) H/O: HTN (hypertension) History of angina History of kidney stones Hx of gallstones Hx of gout Hypercholesteremia Lymphedema Sleep apnea Umbilical hernia Surgical History Surgical History Surgical history unknown Family History Family History Father Acute myocardial infarction Social History Social History Smoking status: Former smoker Second hand tobacco smoke exposure: Yes Alcohol intake: never Substance use: never Gender identity (if verbalized by the patient): Male Spiritual care concerns: No Agree to blood products: Yes Exam Narrative: GENERAL: Well-appearing, obese, and in no acute distress. HEAD: Normocephalic, atraumatic. EYES: EOMI. CHEST: Clear to auscultation. No respiratory distress. No wheezes rales or rhonchi HEART: Regular rate and rhythm. No murmur heard. Normal peripheral pulses. EXTREMITIES: Normal range of motion. Bilateral, symmetric lower extremity edema without overlying erythema or warmth. Normal DP pulses SKIN: Warm, dry, no rash. NEURO: No focal deficits. Alert and oriented x3. PSYCH: Normal mood and affect Course Vital Signs Vital signs: Vital Signs Temperature 97.5 F L 07/08/21 17:31 Pulse Rate 85 07/08/21 17:31 Respiratory Rate 18 07/08/21 17:31 Blood Pressure 162/80 H 07/08/21 17:31 Pulse Oximetry 98 07/08/21 17:31 Temperature 97.5 F L 07/08/21 17:31 Pulse Rate 83 07/08/21 20:56 Respiratory Rate 15 07/08/21 20:56 Blood Pressure 120/56 L 07/08/21 20:56 Pulse Oximetry 97 07/08/21 20:56 MDM - Extremity Injury (Lower) MDM Narrative Medical decision making narrative: Patient presents to the ER for lower extremity edema. Patient has history of lymphedema. No concerning erythema or warmth on exam. No abnormal drainage. He is afebrile and nont
[2021-07-08 19:18] VITALS: BP 134/72; PULSE 91; RESP 18; O2SAT 98
[2021-07-08 19:33] LABS: Basophils Absolute Auto 0.1 K/mm3 (0.0-0.1); Basophils Percent Auto 0.4 % (0.2-1.2); Eosinophils Absolute Auto 0.5 K/mm3 (0-0.3); Eosinophils Percent Auto 4.6 % (0-4.4); Hematocrit 39.8 % (42.0-52.0); Hemoglobin 13.3 g/dL (14.0-18.0); Immature Granulocyte Absolute 0.09 K/mm3 (0.00-0.031); Immature Granulocyte Percent A 0.8 % (0-0.5); Lymphocytes Absolute Auto 2.97 K/mm3 (0.9-3.2); Lymphocytes Percent Auto 25.5 % (18.3-44.2); Mean Corpuscular HGB Conc 33.4 g/dl (32-36); Mean Corpuscular Hemoglobin 30.1 pg (26-34); Mean Platelet Volume 9.7 fl (7.4-10.4); Monocytes Absolute Auto 0.9 K/mm3 (0.1-0.6); Monocytes Percent Auto 7.6 % (2.6-8.5); Neutrophils Absolute Auto 7.1 K/mm3 (1.3-6.7); Neutrophils Percent Auto 61.1 % (45.5-73.1); Platelet Count Result 209 k/mm3 (150-375); Red Blood Count 4.42 M/mm3 (4.6-6.20); Red Cell Distribution Width 13.2 % (11.5-14.5); White Blood Count 11.6 K/mm3 (4.5-10.0)
[2021-07-08 19:36] LABS: Prothrombin Time 13.3 Seconds (11.1-14.7)
[2021-07-08 19:37] LABS: Partial Thromboplastin Time 29.3 SECONDS (22.3-36.8)
[2021-07-08 19:45] LABS: D Dimer 0.27 ug/mL (<0.48)
[2021-07-08 19:46] LABS: Anion Gap 9 mmol/L (8-16); Blood Urea Nitrogen 12 mg/dL (9-20); CRP 2.1 mg/dL (<1.0); Calcium 9.5 mg/dL (8.4-10.2); Carbon Dioxide 30 mmol/L (22-30); Chloride 96 mmol/L (98-107); Estimated CRCL calculation 217 ml/min; Estimated Glomerular Filt Rate > 60; Glucose 197 mg/dL (65-110); Potassium 3.3 mmol/L (3.4-5.0); Sodium 135 mmol/L (137-145)
[2021-07-08 19:52] LABS: NT Pro B Type Natriuretic Pept 35 pg/mL (5-100)
[2021-07-08 20:02] LABS: Erythrocyte Sedimentation Rate 36 mm/hr (0-20)
[2021-07-08 20:56] VITALS: BP 120/56; PULSE 83; RESP 15; O2SAT 97
[2021-07-08] MEDS: POTASSIUM CHLORIDE 20 MEQ TABLET 40 MEQ PO (21:29)
[2021-07-08 21:36] VITALS: BP 122/74; PULSE 78; RESP 17; O2SAT 100
== END 2021-07-08 21:39 | disposition home or self-care (01) ==
PROVIDERS: Physician Assistant; Emergency Provider Family Medicine; PCP Internal Medicine
DX: I89.0 Lymphedema, not elsewhere classified (principal); E87.6 Hypokalemia; E11.9 Type 2 diabetes mellitus without complications; E78.00 Pure hypercholesterolemia, unspecified; K21.9 Gastro-esophageal reflux disease without esophagitis; M10.9 Gout, unspecified; G47.30 Sleep apnea, unspecified; Z87.442 Personal history of urinary calculi; Z79.84 Long term (current) use of oral hypoglycemic drugs; Z79.4 Long term (current) use of insulin; Z79.82 Long term (current) use of aspirin; Z87.891 Personal history of nicotine dependence; R94.31 Abnormal electrocardiogram [ECG] [EKG]; R06.02 Shortness of breath
CPT/HCPCS: 36415; 71046; 80048; 83880; 85025; 85380; 85610; 85652; 85730; 86140; 93005; 99284; A9270